=== PATIENT | male | born 1990 | race Two or more races ===

== ENCOUNTER 2018-07-24 21:37 | Emergency (ER) | payer OTHER ==
[~2018-07-24] VITALS: Ht 205.7 cm; Wt 117.0 kg
== END 2018-07-25 01:59 | disposition home or self-care (01) ==
LOC: ER 21:37
DX: D69.6 Thrombocytopenia, unspecified (principal); R50.9 Fever, unspecified

== ENCOUNTER 2023-01-16 10:23 | Emergency (ER) | payer OTHER ==
[~2023-01-16] VITALS: Ht 182.9 cm; Wt 120.2 kg
[2023-01-16 12:02] LABS: HEMATOCRIT 44.9 % (39.0-48.0); HEMOGLOBIN 15.3 g/dL (13-16.00); MEAN CELL VOLUME 80.9 fL (80.0-100.00); MEAN CORPUSCULAR HEMOGLOBIN 27.6 pg (27.00-32.0); MEAN CORPUSCULAR HGB CONC 34.1 g/dl (32.0-36.0); PLATELET COUNT 133 K/uL (150-450); RED BLOOD COUNT 5.55 M/uL (4.00-6.00); RED CELL DISTRIBUTION WIDTH 13.7 % (11.5-14.5)
[2023-01-16 12:39] LABS: CALCIUM 9.7 mg/dL (8.5-10.1); CREATININE SERUM 1.11 mg/dL (0.70-1.30); GFR 76.77; POTASSIUM 4.04 mEq/L (3.5-5.1)
[2023-01-16 13:30] LABS: URINE APPEARANCE Clear; URINE BILIRRUBIN Negative (NEGATIVE); URINE BLOOD Negative; URINE COLOR Dark Yellow; URINE GLUCOSE Negative (NEGATIVE); URINE LEUKOCYTE Trace; URINE NITRATE Negative; URINE PROTEIN Trace (NEGATIVE)
[2023-01-16 13:34] LABS: URINE BACTERIA 12.5 uL (0.0-1933); URINE EPITHELIAL CELLS 4.1 uL (0.0-38.8); URINE RBC 3.7 uL (0.0-20.8); URINE WBC 2.6 uL (0.0-23.2)
== END 2023-01-16 18:04 | disposition home or self-care (01) ==
LOC: ER
PROVIDERS: Emergency Medicine
DX: K52.89 Other specified noninfective gastroenteritis and colitis (principal); Z88.0 Allergy status to penicillin; Z88.8 Allergy status to other drugs, medicaments and biological substances